=== PATIENT | male | born 1955 | race Caucasian/White ===

== ENCOUNTER 2019-08-22 04:13 | Emergency (ER) | payer OTHER ==
[~2019-08-22] VITALS: Ht 180.3 cm; Wt 119.0 kg
[2019-08-22 06:51] LABS: BASOPHIL % 0.2 % (0-2); PLATELET COUNT 154 x10^3mcL (130-400); RED CELL DISTRIBUTION WIDTH 13.3 % (11.5-14.5)
[2019-08-22 07:22] LABS: CHOLESTEROL/HDL RATIO 4.5
[2019-08-22 07:27] LABS: ALBUMIN 3.7 g/dL (3.4-5.0); CALCIUM 9.2 mg/dL (8.5-10.1); CARBON DIOXIDE 29.8 mmol/L (21-32); CREATININE SERUM 1.3 mg/dL (0.7-1.3); POTASSIUM SERUM 4.1 mmol/L (3.5-5.1); TOTAL PROTEIN, SERUM 7.6 g/dL (6.4-8.2)
[2019-08-22 09:03] VITALS: BP 125/81
== END 2019-08-22 09:03 | disposition home or self-care (01) ==
LOC: ED 04:13
PROVIDERS: Emergency Medicine
DX: K80.20 Calculus of gallbladder without cholecystitis without obstruction (principal); E78.00 Pure hypercholesterolemia, unspecified
CPT/HCPCS: 36415; Q0092